=== PATIENT | male | born 1960 | race African-American/Black ===

== ENCOUNTER 2020-08-27 06:10 | Inpatient (IN) | payer BC ==
[~2020-08-27] VITALS: Ht 188 cm; Wt 87.6 kg
[2020-08-27] MEDS ORDERED: SODIUM CHLORIDE 0.9% 1,000 ML IV ONE ×2 (06:45)
[2020-08-27 07:27] LABS: Basophils # (auto) 0.1 10 ^3/uL (0-0.2); Basophils % (auto) 0.8 % (0.0-2.0); Eosinophils # (auto) 0 10 ^3/uL (0-0.8); Hematocrit 53.7 % (41.0-53.0); Hemoglobin 17.5 g/dL (13.5-17.5); Lymphocytes # (auto) 1.2 10 ^3/uL (0.4-5.4); Lymphocytes % (auto) 11.6 % (10.0-50.0); Mean Corpuscular Hemoglobin 26.8 pg (28.0-32.0); Mean Corpuscular Hgb Conc. 32.6 g/dL (32.0-36.0); Mean Corpuscular Volume 82.2 fL (80.0-100.0); Monocytes # (auto) 0.4 10 ^3/uL (0-1.3); Monocytes % (auto) 3.9 % (0.0-12.0); Neutrophils # (auto) 8.9 10 ^3/uL (1.6-8.6); Neutrophils % (auto) 83.7 % (37.0-80.0); Nucleated Red Blood Cells % 0.2 %; Red Blood Cells 6.53 10^6/uL (4.5-5.90); Red Cell Distribution Width 15.3 % (11.8-14.3); White Blood Cell 10.6 10^3/uL (4.4-10.8)
[2020-08-27 07:49] LABS: Albumin 4.6 g/dL (3.4-5.0); Anion Gap 25 (5-15); Blood Urea Nitrogen 30 mg/dL (7-18); Calcium 9.9 mg/dL (8.5-10.1); Chloride 102 mmol/L (98-107); Potassium 5.1 mmol/L (3.5-5.1); Sodium 136 mmol/L (136-145)
[2020-08-27 07:57] LABS: Alanine Aminotransferase 37 U/L (16-61); Alkaline Phosphatase 119 U/L (45-117); Aspartate Aminotransferase 12 U/L (15-37); BUN/Creatinine Ratio 18.8; Bilirubin, Total 0.8 mg/dL (0.2-1.0); GFR African American 57 mL/min; GFR Non-African American 47 mL/min; Total Protein 9.1 g/dL (6.4-8.2)
[2020-08-27 08:12] LABS: Carbon Dioxide 9 mmol/L (21-32); Glucose 474 mg/dL (74-106)
[2020-08-27] MEDS ORDERED: InsuLIN REG 1unit/0.01ml Soln (100units/ml) IV ONE (08:15)
[2020-08-27] MEDS ORDERED: DEXTROSE (50%) 50ML SYRG IV PRN ×3 (08:45→21:45)
[2020-08-27] MEDS ORDERED: InsuLIN R (HUMAN) 100 UNITS in SODIUM CHL 0.9% 99 ML IV SCH ×2 (08:45→09:45)
[2020-08-27] MEDS: SODIUM CHLORIDE 0.9% 1,000 ML IV SCH ×4 (09:00→22:46)
[2020-08-27] MEDS ORDERED: ACCU-CHEK COMFORT CURVE STRIP VI SCH (09:00)
[2020-08-27 09:05] LABS: Urine Bacteria NONE SEEN /hpf (None Seen); Urine Blood Negative /uL (Negative); Urine Specific Gravity 1.025 (1.001-1.035); Urine WBC <1 /hpf (0 - 3)
[2020-08-27] MEDS ORDERED: INSULIN LANTUS (GLARGINE) 1 /0.01ml (100units/ml) SC ONE (09:45)
[2020-08-27] MEDS ORDERED: MORPHINE SULFATE INJECTION 2 MG/ML SYRG IV PRN ×2 (09:45→10:00)
[2020-08-27] MEDS ORDERED: SODIUM CHLORIDE 0.9% 1,000 ML IV SCH ×4 (09:45→14:45)
[2020-08-27] MEDS ORDERED: NITROGLYCERIN 0.4 MG SL TAB SL PRN (09:45)
[2020-08-27] MEDS ORDERED: PROMETHAZINE HCL 25 MG/ML 1ML IV PRN (10:00)
[2020-08-27] MEDS ORDERED: ACETAMINOPHEN 500 MG TAB PO PRN (10:00)
[2020-08-27] MEDS ORDERED: traMADol HCL 50 MG TAB PO PRN ×2 (10:00)
[2020-08-27] MEDS: ACCU-CHEK COMFORT CURVE STRIP VI SCH ×9 (10:36→23:32)
[2020-08-27] MEDS: FAMOTIDINE (10MG/ML) 2ML VL IV SCH ×2 (10:47→22:46)
[2020-08-27 12:37] LABS: Calcium 9.2 mg/dL (8.5-10.1)
[2020-08-27] MEDS ORDERED: ASPI1TAB20 PO (14:15)
[2020-08-27] MEDS ORDERED: CLOT-32 TOP (14:20)
[2020-08-27] MEDS ORDERED: METF-372 PO (14:22)
[2020-08-27] MEDS ORDERED: FENO54TA4 PO (14:22)
[2020-08-27] MEDS ORDERED: METF-370 PO (14:59)
[2020-08-27] MEDS ORDERED: FLUC150T38 PO (14:59)
[2020-08-27 16:20] LABS: BUN/Creatinine Ratio 17.8; Potassium 4.6 mmol/L (3.5-5.1)
[2020-08-27 22:40] LABS: BUN/Creatinine Ratio 14.7; Calcium 9.1 mg/dL (8.5-10.1); Potassium 4.3 mmol/L (3.5-5.1)
[2020-08-27] MEDS: InsuLIN REG 1unit/0.01ml Soln (100units/ml) SC SCH (23:37)
[2020-08-27 23:55] VITALS: BP 117/51
[2020-08-28 05:00] VITALS: BP 120/73
[2020-08-28] MEDS: SODIUM CHLORIDE 0.9% 1,000 ML IV SCH ×3 (05:05→18:25)
[2020-08-28] MEDS: ACCU-CHEK COMFORT CURVE STRIP VI SCH ×3 (05:52→17:53)
[2020-08-28] MEDS: InsuLIN REG 1unit/0.01ml Soln (100units/ml) SC SCH ×3 (05:56→18:04)
[2020-08-28 05:59] LABS: Basophils # (auto) 0.1 10 ^3/uL (0-0.2); Basophils % (auto) 0.8 % (0.0-2.0); Eosinophils # (auto) 0.1 10 ^3/uL (0-0.8); Eosinophils % (auto) 0.7 % (0.0-7.0); Hemoglobin 15.6 g/dL (13.5-17.5); Lymphocytes # (auto) 1.4 10 ^3/uL (0.4-5.4); Lymphocytes % (auto) 16.6 % (10.0-50.0); Mean Corpuscular Hemoglobin 27.5 pg (28.0-32.0); Mean Corpuscular Hgb Conc. 33.9 g/dL (32.0-36.0); Mean Corpuscular Volume 81.2 fL (80.0-100.0); Monocytes # (auto) 0.6 10 ^3/uL (0-1.3); Neutrophils # (auto) 6.4 10 ^3/uL (1.6-8.6); Neutrophils % (auto) 74.9 % (37.0-80.0); Red Blood Cells 5.67 10^6/uL (4.5-5.90); Red Cell Distribution Width 14.8 % (11.8-14.3); White Blood Cell 8.6 10^3/uL (4.4-10.8)
[2020-08-28 06:24] LABS: Potassium 4.1 mmol/L (3.5-5.1)
[2020-08-28 06:32] LABS: Albumin 3.5 g/dL (3.4-5.0); BUN/Creatinine Ratio 15.9; Bilirubin, Total 0.8 mg/dL (0.2-1.0); Calcium 8.5 mg/dL (8.5-10.1)
[2020-08-28 07:31] VITALS: BP 111/65
[2020-08-28 09:00] VITALS: BP 111/65
[2020-08-28] MEDS: FAMOTIDINE (10MG/ML) 2ML VL IV SCH ×2 (09:31→22:05)
[2020-08-28] MEDS: INSULIN LANTUS (GLARGINE) 1 /0.01ml (100units/ml) SC SCH (09:39)
[2020-08-28] MEDS ORDERED: LACTULOSE 20Gm/30ML SOLN PO ONE (12:15)
[2020-08-28 13:00] VITALS: BP 136/85
[2020-08-28 17:00] VITALS: BP 130/84
[2020-08-28 22:00] VITALS: BP 141/83
[2020-08-29] MEDS: InsuLIN REG 1unit/0.01ml Soln (100units/ml) SC SCH ×2 (00:37→07:04)
[2020-08-29] MEDS: SODIUM CHLORIDE 0.9% 1,000 ML IV SCH ×2 (01:05→07:45)
[2020-08-29 05:00] VITALS: BP 123/82
[2020-08-29] MEDS: ACCU-CHEK COMFORT CURVE STRIP VI SCH ×2 (06:06)
[2020-08-29 08:34] VITALS: BP 146/81
[2020-08-29] MEDS: FAMOTIDINE (10MG/ML) 2ML VL IV SCH (10:00)
[2020-08-29] MEDS: INSULIN LANTUS (GLARGINE) 1 /0.01ml (100units/ml) SC SCH (10:06)
[2020-08-29 10:19] VITALS: BP 146/81
== END 2020-08-29 11:00 | disposition home or self-care (01) | DRG 639 ==
LOC: ER 06:10 → TELE 09:31 → TELE-WESTW 23:07
PROVIDERS: ADMIT Internal Medicine; ATTEND Family Medicine
DX: E11.10 Type 2 diabetes mellitus with ketoacidosis without coma (principal); E86.0 Dehydration; M54.9 Dorsalgia, unspecified; Z20.822 Contact with and (suspected) exposure to COVID-19; Z79.84 Long term (current) use of oral hypoglycemic drugs
CPT/HCPCS: 36415; 36600; 74176; 80048; 80053; 81001; 82010; 82805; 82962; 83036; 83880; 84154; 84484; 85025; 85049; 87426; 93005; 96361; 96365; 96376; G0378; J1815; J3490